=== PATIENT | male | born 1965 | race Two or more races ===

== ENCOUNTER 2019-04-23 00:10 | Emergency (ER) | payer MEDICAID ==
[~2019-04-23] VITALS: Ht 170.2 cm; Wt 65.8 kg
[2019-04-23 00:19] VITALS: BP 101/71
--- NOTE | 2019-04-23 00:23 | NUR ---
ED Nurse Note: Patient was BIBA due to anxiety. States has this problem 4 days, but today he was not able to control it. Patient presented anxious, resstless, AAO x4. Patient's HR is 125, BP 174/109. AAO x4, skin is dry warm to touch.
[2019-04-23] MEDS ORDERED: LORazepam Inj 2mg/ml 1ml IM ONE (01:00)
--- NOTE | 2019-04-23 01:01 | Emergency Room Report ---
History of Present Illness General Chief Complaint: Behavioral Complaint Source: Patient, EMS Present Illness HPI 54-year-old male presents with chief complaint of anxiety. This is a chronic problem. He said he usually go to the hospital to get a shot of Ativan. He also has a history of methamphetamine abuse. Denies any fever chills but denies any nausea or vomiting. Said he felt palpitation and shortness of breath. Denies any other complaint. Not suicidal or homicidal. Allergies: Coded Allergies: No Known Allergies (Unverified , 04/23/19) Patient History Past Medical History: see triage record, old chart reviewed, psych hx Past Surgical History: none Pertinent Family History: none Social History: Reports: smoking, drug use Immunizations: other Reviewed Nursing Documentation: PMH: Agreed; PSxH: Agreed Nursing Documentation-PMH History Of Psychiatric Problem: Yes Review of Systems Eye: Denies: eye pain, blurred vision ENT: Denies: ear pain, nose congestion, throat swelling Respiratory: Denies: cough, shortness of breath Cardiovascular: Denies: chest pain, palpitations Gastrointestinal: Denies: abdominal pain, diarrhea, nausea, vomiting Musculoskeletal: Denies: back pain, joint pain Skin: Denies: rash Psychiatric: Reports: anxiety Neurological: Denies: headache, numbness Endocrine: Denies: increased thirst, increased urine Hematologic/Lymphatic: Denies: easy bruising All Other Systems: negative except mentioned in HPI Physical Exam Vital Signs Date Time Temp Pulse Resp B/P (MAP) Pulse Ox O2 Delivery O2 Flow Rate FiO2 04/23/19 00:09 99.0 89 20 101/71 (81) 99 Room Air Vitals with unremarkable Sp02 EP Interpretation: reviewed, normal General Appearance: well appearing, no apparent distress, alert Head: normocephalic, atraumatic Eyes: bilateral eye PERRL, bilateral eye EOMI ENT: hearing grossly normal, normal pharynx Neck: full range of motion, supple, no meningismus Respiratory: chest non-tender, lungs clear, normal breath sounds Cardiovascular #1: regular rate, rhythm, no murmur Gastrointestinal: normal bowel sounds, non tender, no mass, no organomegaly, no bruit, non-distended Musculoskeletal: back normal, normal range of motion, gait/station normal Psychiatric: mood/affect normal Medical Decision Making Diagnostic Impression: Primary Impression: Anxiety Additional Impression: Methamphetamine abuse ER Course Presents with anxiety induced by methamphetamine abuse. This may be also withdrawal symptoms. No evidence of ACS, PE, dissection to name a few. Will discharge home. This patient is a chronic risk of self injury due to poor impulse control, limited coping skills, and judgment intermittently impaired by intoxication. I believe that the available clinical evidence to suggest that these characteristics derived primarily from personality disorder and are likely very stable over time. Hospitalization would likely attenuate risk of self-harm only during retirement period, without lasting risk reduction. Serious self-harm , while possible, would likely be inadvertent, and because of impulsivity, and foreseeable. For these reasons, I do not believe hospitalization would provide meaningful reduction in risk of self-harm. Last Vital Signs Date Time Temp Pulse Resp B/P (MAP) Pulse Ox O2 Delivery O2 Flow Rate FiO2 04/23/19 00:19 99.0 20 101/71 99 Room Air 04/23/19 00:19 89 Status: improved Disposition: HOME, SELF-CARE Condition: Stable Patient Instructions: Self-Destructive Behavior Additional Instructions: Stop using drugs. Follow-up with mental health within a week. Follow-up with your doctor in a week. Return if worse. Sánchez Saldaña MD Apr 23, 2019 01:01
[2019-04-23] MEDS ORDERED: VISTARIL50 MG ORAL (01:07)
[2019-04-23] MEDS ORDERED: cloNIDine 0.2mg Tab ORAL ONE (01:15)
[2019-04-23 01:35] VITALS: BP 177/115
--- NOTE | 2019-04-23 01:35 | NUR ---
ED Nurse Note: Pt cleared by health care Provider for discharge. DC instructions/prescription was given and explained to pt and verbalized understanding of teachings. All medical deviecs such as ID band removed. Pt is AAO x4, ambulatory and left with all personal belongings.
== END 2019-04-23 01:35 | disposition home or self-care (01) ==
LOC: EDBD 00:10 → EMR 00:25
DX: F41.9 Anxiety disorder, unspecified (principal); F15.10 Other stimulant abuse, uncomplicated; F17.200 Nicotine dependence, unspecified, uncomplicated
CPT/HCPCS: 96372; Z7502; 99283